=== PATIENT | female | born 2000 | race Caucasian/White ===

== ENCOUNTER 2020-04-26 19:54 | Emergency (ER) | payer BC ==
--- NOTE | 2020-04-26 22:07 | EDM.PDOC ---
ED HPI GENERAL MEDICAL PROBLEM - General Chief Complaint: Respiratory Problem Stated Complaint: COVID SYMPTOMS Time Seen by Provider: 04/26/20 20:08 Source of Information: Reports: Patient, RN Notes Reviewed History Limitations: Reports: No Limitations - History of Present Illness INITIAL COMMENTS - FREE TEXT/NARRATIVE: Patient is a 19-year-old female who presents to the ED for the evaluation of her Covid-like symptoms. Patient states that on she developed a dry hacking cough, and notes that the symptoms got worse over the weekend. She has a headache, congestion, sore throat, and developed a loss of her sense of taste today. She has been using Sudafed, Robitussin, vitamin C over the weekend as she thought was just a common cold. Patient's not had any fevers or chills. She does have a history of bronchitis when she was younger child that required nebulizers at home. 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 - Related Data Allergies Allergy/AdvReac Type Severity Reaction Status Date / Time No Known Allergies Allergy Verified 04/26/20 20:06 Home Meds: Home Meds Control. 1 tab PO DAILY 04/26/20 [History] Montelukast [Singulair] 10 mg PO DAILY 04/26/20 [History] Past Medical History Respiratory History: Reports: Bronchitis, Recurrent - Past Surgical History HEENT Surgical History: Reports: Adenoidectomy, Tonsillectomy Musculoskeletal Surgical History: Reports: Other (See Below) Other Musculoskeletal Surgeries/Procedures:: meniscus repair Social & Family History - Tobacco Use Tobacco Use Status *Q: Never Tobacco User Second Hand Smoke Exposure: No - Caffeine Use Caffeine Use: Reports: Coffee - Recreational Drug Use Recreational Drug Use: No ED ROS GENERAL - Review of Systems Review Of Systems: Comprehensive ROS is negative, except as noted in HPI. ED EXAM, GENERAL - Physical Exam Exam: See Below Exam Limited By: No Limitations General Appearance: Alert, WD/WN, No Apparent Distress Respiratory/Chest: No Respiratory Distress, Lungs Clear, Normal Breath Sounds, No Accessory Muscle Use, Chest Non-Tender Cardiovascular: Normal Peripheral Pulses, Regular Rate, Rhythm, No Murmur Peripheral Pulses: 2+: Radial (L), Radial (R) Extremities: Normal Inspection, Normal Capillary Refill Neurological: Alert, Oriented, Normal Cognition, No Motor/Sensory Deficits Psychiatric: Normal Affect, Normal Mood Skin Exam: Warm, Dry, Intact, Normal Color, No Rash Course - Vital Signs Last Recorded V/S: Last Vital Signs Temp 97.4 F 04/26/20 20:04 Pulse 81 04/26/20 20:04 Resp 16 04/26/20 20:04 BP 150/117 H 04/26/20 20:04 Pulse Ox 98 04/26/20 20:04 - Orders/Labs/Meds Orders: Active Orders 24 hr Category Date Time Status Chest 1V Frontal [CR] Stat Exams 04/26/20 21:18 Ordered - Re-Assessments/Exams Free Text/Narrative Re-Assessment/Exam: 04/26/20 22:02 Patient presents to the ED for the evaluation of her ongoing Covid-like symptoms. Apparently an [facility] [employer] account was created, and a Covid swab was ordered on outpatient basis for this, patient still wanted to be seen in the ER. I did order a chest x-ray for evaluation, she states she commonly gets bronchitis. I have looked this over, and I do not see any acute changes like consolidation, or any Covid looking symptoms. Patient states that [id number] cough medicine is not helping much and she is not been able to get much sleep. I will provide her with a prescription for Phenergan with codeine, she will have to go home and quarantine until she gets her Covid results from [facility] [employer]. Departure - Departure Time of Disposition: 22:03 Disposition: Home, Self-Care 01 Condition: Good Clinical Impression: Suspected COVID-19 virus infection - Discharge Information *PRESCRIPTION DRUG MONITORING PROGRAM REVIEWED*: No *COPY OF PRESCRIPTION DRUG MONITORING REPORT IN PATIENT JONG: No Referrals: PCP,None [Primary Care Provider] - Care Plan Goals: You were seen in the ER today for ongoing and/or worsening respiratory symptoms. Your chest x-ray showed no signs of pneumonia at this time. Your oxygen levels were great at 98% on room air. At this time we did test you for COVID-19. We ask that you self-quarantine and limit your exposure to others until you receive your results. Please try to increase your oral fluid intake, and eat multiple small meals throughout the day, to keep yourself healthy. You need to keep yourself nourished in order to fight off this disease. You can try a liquid diet like gatorade/powerade as well to get your electrolytes. You may take 500 mg Tylenol every hours 6 hours for pain/fever relief. Do not exceed 4000 mg Tylenol in a 24-hour time span. However, running a fever is your body's natural response to illness, and it allows the body to develop antibodies to disease, we are recommending trying to limit the use of Tylenol as much as possible to allow your body's natural immune response. You were given a prescription for cough medication, please use 5 mL every 4-6 ho urs for cough. Sepsis Event Note (ED) - Evaluation Sepsis Screening Result: No Definite Risk - Focused Exam Vital Signs: Vital Signs Temp Pulse Resp BP Pulse Ox 04/26/20 20:04 97.4 F 81 16 150/117 H 98 - My Orders Last 24 Hours: My Active Orders 04/26/20 21:18 Chest 1V Frontal [CR] Stat - Assessment/Plan Last 24 Hours: My Active Orders 04/26/20 21:18 Chest 1V Frontal [CR] Stat
--- NOTE | 2020-04-27 13:48 | CR ---
PROCEDURE INFORMATION: Exam: XR Chest, 1 View Exam date and time: 04/26/2020 9:16 PM Age: 19 years old Clinical indication: Cough; Patient HX: Suspect covid/bronchitis TECHNIQUE: Imaging protocol: XR of the chest Views: 1 view. COMPARISON: No relevant prior studies available. FINDINGS: Lungs: Asymmetric ground-glass lung opacification in the medial right lower lobe region. The lungs are otherwise clear. No peribronchial thickening. Pleural space: Normal. Heart/Mediastinum: Normal heart and cardiomediastinal silhouette. Vasculature: Normal pulmonary vessel caliber. Normal aorta. Bones/joints: The bones are intact. Other findings: Normal inflation. IMPRESSION: Right lower lobe infiltrates suspicious for pneumonia. Thank you for allowing us to participate in the care of your patient. Dictated and Authenticated by: José Navas MD 04/27/2020 11:13 AM Central Time ([place] & [place]) [place]
== END 2020-04-26 22:21 | disposition home or self-care (01) ==
LOC: JD.ED 19:54
DX: J02.9 Acute pharyngitis, unspecified (principal); Z20.828 Contact with and (suspected) exposure to other viral communicable diseases; Z90.49 Acquired absence of other specified parts of digestive tract
CPT/HCPCS: 71045; 71045-26; 99283; 99283-25

== ENCOUNTER 2020-04-30 20:02 | Emergency (ER) | payer BC ==
--- NOTE | 2020-04-30 20:59 | EDM.PDOC ---
ED HPI GENERAL MEDICAL PROBLEM - General Chief Complaint: ENT Problem Stated Complaint: EAR PAIN AND COVID POSITIVE Time Seen by Provider: 04/30/20 20:14 Source of Information: Reports: Patient, RN Notes Reviewed History Limitations: Reports: No Limitations - History of Present Illness INITIAL COMMENTS - FREE TEXT/NARRATIVE: Patient is a 19-year-old female presenting to the emergency department with complaints of left ear pain as well as nausea. She was diagnosed Covid +3 days ago. She developed ear pain the next day. She was seen at the walk-in clinic 2 days ago diagnosed with left-sided otitis media and started on Augmentin. She has been taking this medication as prescribed. She states that the pain of in her ear seems to be worsening. She feels that into the side of her face. She also has sinus pressure well as nausea with a couple episodes of diarrhea today. She has a mild cough but overall is doing well from a respiratory aspect. Denies any significant shortness of breath. Has no fever or chills. Bilateral Ear Pain Score (Numeric/FACES): 10 - Related Data Allergies Allergy/AdvReac Type Severity Reaction Status Date / Time cephalexin [From Keflex] AdvReac Severe Diarrhea Verified 04/30/20 20:17 Home Meds: Home Meds Control. 1 tab PO DAILY 04/26/20 [History] Montelukast [Singulair] 10 mg PO DAILY 04/26/20 [History] Acetaminophen [Tylenol] 325 mg PO Q4H PRN 04/30/20 [History] Acetaminophen/Codeine [Tylenol with Codeine No.3 300MG/30MG] 1 tab PO Q4H PRN #10 tab 04/30/20 [Rx] Amoxicillin/Clavulanate K [Augmentin 250-125 MG] 0 mg PO BID 04/30/20 [History] Fluticasone Propionate [Flonase] 2 sprays NASBOTH DAILY PRN #1 bottle 04/30/20 [Rx] Ibuprofen 400 mg PO Q4HR PRN 04/30/20 [History] Ondansetron [Zofran ODT] 4 mg PO Q6H PRN #10 tab.dis 04/30/20 [Rx] Past Medical History - Infectious Disease History Infectious Disease History: Reports: Novel Coronavirus - Past Surgical History HEENT Surgical History: Reports: Adenoidectomy, Tonsillectomy Musculoskeletal Surgical History: Reports: Other (See Below) Other Musculoskeletal Surgeries/Procedures:: meniscus repair Social & Family History - Tobacco Use Tobacco Use Status *Q: Never Tobacco User - Caffeine Use Caffeine Use: Reports: Coffee - Recreational Drug Use Recreational Drug Use: No ED ROS ENT - Review of Systems Review Of Systems: Comprehensive ROS is negative, except as noted in HPI. ED EXAM, ENT - Physical Exam Exam: See Below Exam Limited By: No Limitations General Appearance: Alert, WD/WN, No Apparent Distress Ears: TM Dullness (Left), TM Erythema (Left) Head: Atraumatic, Normocephalic, Sinus Tenderness (Bilateral frontal and maxillary sinuses) Respiratory/Chest: No Respiratory Distress, Lungs Clear, Normal Breath Sounds, No Accessory Muscle Use, Chest Non-Tender Cardiovascular: Normal Peripheral Pulses, Regular Rate, Rhythm, No Edema, No Gallop, No JVD, No Murmur, No Rub GI/Abdominal: Normal Bowel Sounds, Soft, Non-Tender, No Organomegaly, No Distention, No Abnormal Bruit, No Mass Neurological: Alert, Oriented, CN II-XII Intact, Normal Cognition, Normal Gait, Normal Reflexes, No Motor/Sensory Deficits Psychiatric: Normal Affect, Normal Mood Skin: Warm, Dry, Intact, Normal Color, No Rash Course - Vital Signs Last Recorded V/S: Last Vital Signs Temp 97.9 F 04/30/20 20:14 Pulse 92 04/30/20 20:14 Resp 16 04/30/20 20:14 BP 144/105 H 04/30/20 20:14 Pulse Ox 96 04/30/20 20:14 - Re-Assessments/Exams Free Text/Narrative Re-Assessment/Exam: Patient is a 19-year-old female presenting to the emergency department with complaints of left ear pain not relieved by Tylenol or ibuprofen. She was seen in the walk-in clinic 2 days ago and started on Augmentin. She has not quite completed already 48 hours of her 10-day course. She has been alternating Tylenol 650 mg with ibuprofen 400 mg with little relief. She also complains of sinus pressure and nausea. She had a couple episodes of watery diarrhea today as well. On exam, her left TM is dull and erythematous. Submental lymph node is swollen and tender to palpation. She is tender to palpation over the bilateral frontal and maxillary sinuses. It is only been less than 48 hours since she started Augmentin. Ongoing to recommend that she continue this treatment. Also recommend that she start Flonase nasal braid daily. Recommend routine ibuprofen 600 mg every 6 hours. I will send a prescription for Tylenol with codeine to take for pain not relieved by Tylenol and ibuprofen. I will also send a prescription for Zofran as needed for nausea. We will discharge her home. Discharge instructions as document. Departure - Departure Time of Disposition: 20:58 Disposition: Home, Self-Care 01 Condition: Good Clinical Impression: COVID-19 Otitis media Qualifiers: Otitis media type: unspecified Chronicity: acute Qualified Code(s): H66.90 - Otitis media, unspecified, unspecified ear - Discharge Information *PRESCRIPTION DRUG MONITORING PROGRAM REVIEWED*: Yes *COPY OF PRESCRIPTION DRUG MONITORING REPORT IN PATIENT JONG: No Prescriptions: Fluticasone Propionate [Flonase] 2 sprays NASBOTH DAILY PRN #1 bottle PRN Reason: sinus pressure Acetaminophen/Codeine [Tylenol with Codeine No.3 300MG/30MG] 1 tab PO Q4H PRN #10 tab PRN Reason: Pain Ondansetron [Zofran ODT] 4 mg PO Q6H PRN #10 tab.dis PRN Reason: Nausea/Vomiting Instructions: Otitis Media, Adult, [id number], COVID-19 Frequently Asked Questions, COVID-19 Referrals: PCP,None [Primary Care Provider] - Additional Instructions: You were seen in the emergency department today for left-sided ear pain, sinus pressure, nausea, and some diarrhea with a diagnosis of COVID-19. On exam, you do have a left-sided otitis media. Recommend that you continue your Augmentin treatment as previously prescribed. Take ibuprofen 600 mg every 6 hours routinely for treatment of pain. You may also occasionally take Tylenol 650 mg. For pain not relieved by the Tylenol or ibuprofen, you may use a Tylenol with codeine. Please be aware that there is 300 mg of Tylenol in each Tylenol with codeine tablet. You should not exceed 4000 mg of Tylenol from all sources in 1 day. A prescription for Flonase nasal spray for sinus pressure, as well as Zofran for nausea has also been prescribed. Take these medications as prescribed. If you experience any new or worsening symptoms of concern, please not hesitate to return to the emergency department for reevaluation. Sepsis Event Note (ED) - Evaluation Sepsis Screening Result: No Definite Risk - Focused Exam Vital Signs: Vital Signs Temp Pulse Resp BP Pulse Ox 04/30/20 20:14 97.9 F 92 16 144/105 H 96
== END 2020-04-30 21:15 | disposition home or self-care (01) ==
LOC: JD.ED 20:02
DX: H66.92 Otitis media, unspecified, left ear (principal); U07.1 COVID-19; R19.7 Diarrhea, unspecified; Z88.1 Allergy status to other antibiotic agents
CPT/HCPCS: 99283